=== PATIENT | male | born 1955 | race Caucasian/White ===

== ENCOUNTER 2016-11-16 09:40 | Emergency (ER) | payer MEDICARE, BC ==
[2016-11-16 11:07] VITALS: BP 160/91
--- NOTE | 2016-11-16 12:04 | EDM.PDOC ---
[id number]: SINUS ISSUES? Time Seen by Provider: 11/16/16 10:59 Source of Information: Reports: Patient History Limitations: Reports: No Limitations - History of Present Illness INITIAL COMMENTS - FREE TEXT/NARRATIVE: 60 yo male present to ER with anal pain. Hx of anal fissure and infection. Has been treated in the past and referred to surgery but after resolution of the infection he did not follow-up. pain started earlier this week. Purulent drainage. denies constipation. loose stools are normal for him. - Related Data Allergies Allergy/AdvReac Type Severity Reaction Status Date / Time No Known Allergies Allergy Verified 03/19/15 10:09 Home Meds: Home Meds Lisinopril [Lisinopril] 20 mg PO DAILY 03/22/13 [History] Omeprazole [Omeprazole] 10 mg PO DAILY 03/22/13 [History] Zolpidem [Ambien] 10 mg PO BEDTIME PRN 03/22/13 [History] Methocarbamol [Robaxin] 1,000 mg PO Q8H 01/15/15 [History] Albuterol Sulfate [Proair Hfa] 2 puff INH Q3H PRN 03/19/15 [History] Budesonide/Formoterol [Symbicort 160-4.5 MCG] 2 puff INH BID 03/19/15 [History] buPROPion HCl [Wellbutrin Xl] 150 mg PO BID 03/19/15 [History] Pregabalin [Lyrica] 11/16/16 [History] Past Medical History Other Gastrointestinal History: colon polyps Other Musculoskeletal History: left leg pain, left foot fracture - Past Surgical History Other Cardiovascular Surgeries/Procedures: angiogram GI Surgical History: Reports: Cholecystectomy, Hernia Repair/Other Musculoskeletal Surgical History: Reports: Arthroscopic Knee, Knee Replacement, Shoulder Surgery Other Musculoskeletal Surgeries/Procedures:: back surgery, left knee replacement Social & Family History - Tobacco Use Smoking Status *Q: Current Every Day Smoker Years of Tobacco use: 40 Packs/Tins Daily: 1 Used Tobacco, but Quit: No Month Tobacco Last Used: February Second Hand Smoke Exposure: No - Alcohol Use Days Per Week of Alcohol Use: 3 Number of Drinks Per Day: 3 Total Drinks Per Week: 9 - Recreational Drug Use Recreational Drug Use: No ED ROS GENERAL - Review of Systems Review Of Systems: See Below Constitutional: Denies: Fever, Chills Respiratory: Denies: Shortness of Breath, Wheezing Cardiovascular: Denies: Chest Pain GI/Abdominal: Denies: Abdominal Pain ED EXAM, GI/ABD - Physical Exam Exam: See Below Exam Limited By: No Limitations General Appearance: Alert, WD/WN, No Apparent Distress Respiratory/Chest: No Respiratory Distress, Lungs Clear, Normal Breath Sounds. No: Crackles, Rhonchi, Wheezing Cardiovascular: Regular Rate, Rhythm, No Murmur Rectal (Males) Exam: Normal Rectal Tone, Rectal Fissure (purulent drainage, moderated tender) Skin Exam: Warm, Dry, Intact Course - Vital Signs Last Recorded V/S: Last Vital Signs Temp 37.1 C 11/16/16 11:04 Pulse 98 11/16/16 11:04 Resp 14 11/16/16 11:04 BP 160/91 H 11/16/16 11:04 Pulse Ox 95 11/16/16 11:04 Departure - Departure Time of Disposition: 12:03 Disposition: Home, Self-Care 01 Condition: good Clinical Impression: Anal fissure Cellulitis Qualifiers: Site of cellulitis: buttock Qualified Code(s): L03.317 - Cellulitis of buttock - Discharge Information Instructions: Wound Infection, [id number] Referrals: Nikhil Paul MD [Primary Care Provider] - Forms: ED Department Discharge Additional Instructions: this is a temporary fix you will need to follow-up as before with surgeon Lidocaine viscous to area for pain Keflex three times daily for 7 days
== END 2016-11-16 12:19 | disposition home or self-care (01) ==
LOC: JP.ED 09:40
DX: K60.2 Anal fissure, unspecified (principal); L03.317 Cellulitis of buttock; F17.210 Nicotine dependence, cigarettes, uncomplicated; Z79.899 Other long term (current) drug therapy; Z96.652 Presence of left artificial knee joint; Z90.49 Acquired absence of other specified parts of digestive tract; Z98.890 Other specified postprocedural states
CPT/HCPCS: 99283

== ENCOUNTER → 2018-09-22 | Day surgery (SDC) | payer MEDICARE, BC ==
[~2018-09-22] MED LIST: Acetaminophen/HYDROcodone 325-5 MG Tab PO PRN; Bupivacaine 0.25% 10 ML SDV ONE; Dexamethasone 4 MG/ML SDV ONE; Glycopyrrolate 0.2 MG/ML 5 ML MDV ONE; Lactated Ringers 1,000 ML IV SCH; Morphine 2 MG/ML Syringe IVPUSH ONE; Neostigmine Methylsulfate 1 MG/ML 5 ML Syringe ONE; Nozin Nasal Sanitizer NASBOTH ONE; Ondansetron 4 MG/2 ML SDV ONE; Propofol 200 MG/20 ML SDV ONE; Rocuronium 50 MG/5 ML Vial ONE; Succinylcholine 200 MG/10 ML MDV ONE; ceFAZolin 2 GM in Premix Bag 1 BAG IV ONE; fentaNYL 250 MCG/5 ML SDV ONE; hydrOXYzine HCl 100 MG/2 ML SDV IM ONE
[2018-09-22 12:01] VITALS: BP 132/89
--- NOTE | 2018-09-28 08:47 | PCM.OPNOTE ---
- General Post-Op/Procedure Note Date of Surgery/Procedure: 09/22/18 Operative Procedure(s): Arthroscopy left knee with extensive synovectomy and debridement of scar tissue Findings: Synovitis left knee with calcifications, scar tissue with encroachment on patellar component. Pre Op Diagnosis: Synovitis left knee Post-Op Diagnosis: Synovitis left knee, intra-articular scar tissue Anesthesia Technique: General ET Tube Primary Surgeon: Jeramy Bautista Complications: None Condition: Good Free Text/Narrative:: Indications: Luis F is a 62-year-old gentleman with a history of left total knee revision who has been having progressive grinding and pain in the left knee.He has failed conservative treatment.He has difficulty with walking from a seated position and stairs. Examination is consistent with synovitis in the left knee and overgrowth of synovium and/or scar tissue around the patellofemoral joint. He now presents for arthroscopic resection of this.Risks, benefits and potential complications were discussed. He agrees to proceed. He is aware that there is a risk for infection of the total knee as well as potential damage to the components. procedure: After adequate anesthesia was obtained patient was placed supine with a tourniquet about the left upper thigh. The leg was prepped and draped in a sterile fashion. Spinal needle was utilized to identify space for a anterior inferior lateral portal.ncision was made with an 11 bladeand thescope trocar was inserted taking care to avoid direct contace component.Scope was introduced. This showed significant car tissue within the notch and around the infe Spinal needle was again utilized to visualize a position for a medial portal.11 blade was used to create a portal and a shaver was then introduced debriding the scar tissue to allow better visualization. Working up around the medial aspect of the patella scar tissue was noted encroaching over the patellar component and a in layer of synovium was present throughout the knee with very small whiteparticles within the sm. Shaver waed on these athey appeared to be a calcific in naturethey had a consistency Arter than the typical synovium.This was cleared around tperior aspect. An ablation wand was also utilized to clear soft tissue and scar tissue from around the patellar component taking care to avoid direct contact with the component. The synovectomy was continued around into the suprapatellar pouch releasing some adhesions. His continued around the lateral aspect until the limits of the shaver were reached.Scope was switched to the medial portal.Shaver was used to debride the synovium in the lateral gutter and around the lateral portion of the patella.The ablation and was also utilized to clear scar tissue from around the patellar component. Should be noted that the patellar component showed a flattened area where it impacted the lateral femoral condyle consistent with increased pressure and possible wear versus plastic deformity of the component.All loose fragments were removed. The knee was drained. Scope was withdrawn and the port sites were then closed in 2 layers with 3-0 Monocryl. Steri-Strips were applied. A light compressive dressing was then placed.Patient tolerated the procedure well and there were no complications he was taken from the operating room in a stable condition.
== END ==
LOC: JP.SDS 08:27
PROVIDERS: ATTEND Specialist
DX: M65.862 Other synovitis and tenosynovitis, left lower leg (principal); M54.16 Radiculopathy, lumbar region; J45.909 Unspecified asthma, uncomplicated; F32.9 Major depressive disorder, single episode, unspecified; I10 Essential (primary) hypertension; F17.200 Nicotine dependence, unspecified, uncomplicated; Z96.652 Presence of left artificial knee joint; Z79.899 Other long term (current) drug therapy
CPT/HCPCS: 29876; A9270; J0330; J0690; J1100; J2270; J2405; J2704; J2710; J3010; J3410; J3490; J7120

== ENCOUNTER 2019-01-17 08:52 | Observation (INO) | payer MEDICARE, BC ==
[~2019-01-17 08:52] MED LIST changes: -Acetaminophen/HYDROcodone 325-5 MG Tab PO PRN; -Bupivacaine 0.25% 10 ML SDV ONE; -Dexamethasone 4 MG/ML SDV ONE; -Glycopyrrolate 0.2 MG/ML 5 ML MDV ONE; -Lactated Ringers 1,000 ML IV SCH; +Midazolam 1 MG/ML 2 ML SDV ONE; -Morphine 2 MG/ML Syringe IVPUSH ONE; -Neostigmine Methylsulfate 1 MG/ML 5 ML Syringe ONE; -Nozin Nasal Sanitizer NASBOTH ONE; -Ondansetron 4 MG/2 ML SDV ONE; -Rocuronium 50 MG/5 ML Vial ONE; -Succinylcholine 200 MG/10 ML MDV ONE; -ceFAZolin 2 GM in Premix Bag 1 BAG IV ONE; +fentaNYL 100 MCG/2 ML SDV ONE; -fentaNYL 250 MCG/5 ML SDV ONE; -hydrOXYzine HCl 100 MG/2 ML SDV IM ONE
[2019-01-17] MEDS ORDERED: Lactated Ringers 1,000 ML IV SCH (09:15)
[2019-01-17] MEDS ORDERED: Gabapentin 300 MG Cap PO ONE (09:15)
[2019-01-17] MEDS ORDERED: Povidone-Iodine 10% Soln 118.25 ML Bottle ONE (09:56)
[2019-01-17] MEDS ORDERED: Scopolamine 1.5 MG Transdermal Patch TOP SCH (10:10)
[2019-01-17] MEDS: Nozin Nasal Sanitizer NASBOTH SCH ×2 (10:12→21:05)
[2019-01-17] MEDS ORDERED: Rocuronium 50 MG/5 ML Vial ONE ×2 (11:00→11:47)
[2019-01-17] MEDS ORDERED: Ondansetron 4 MG/2 ML SDV ONE (11:00)
[2019-01-17] MEDS ORDERED: Succinylcholine 200 MG/10 ML MDV ONE (11:00)
[2019-01-17] MEDS ORDERED: Dexamethasone 4 MG/ML SDV ONE (11:00)
[2019-01-17] MEDS ORDERED: Glycopyrrolate 0.2 MG/ML 5 ML MDV ONE (11:00)
[2019-01-17] MEDS ORDERED: Neostigmine Methylsulfate 1 MG/ML 5 ML Syringe ONE (11:00)
[2019-01-17] MEDS ORDERED: fentaNYL 250 MCG/5 ML SDV ONE ×3 (11:02→12:54)
[2019-01-17] MEDS: ceFAZolin 2 GM in Sodium Chloride 0.9% 50 ML IV ONE ×2 (11:12→16:13)
[2019-01-17] MEDS ORDERED: Albuterol/Ipratropium 3.0-0.5 MG/3 ML Neb Soln NEB ONE (11:15)
[2019-01-17] MEDS ORDERED: Tranexamic Acid 800 MG in Sodium Chloride 0.9% 50 ML IV ONE (11:30)
[2019-01-17] MEDS ORDERED: Lactated Ringers 1,000 ML ONE (13:16)
[2019-01-17] MEDS ORDERED: Magnesium Hydroxide 400 MG/5 ML Susp 30 ML Cup PO PRN (13:28)
[2019-01-17] MEDS ORDERED: Docusate Sodium 100 MG Cap PO PRN (13:28)
[2019-01-17] MEDS ORDERED: Acetaminophen 325 MG Tab PO PRN (13:28)
[2019-01-17] MEDS ORDERED: Ondansetron 4 MG/2 ML SDV IVPUSH PRN (13:28)
[2019-01-17] MEDS ORDERED: Sodium Chloride 0.9% 1,000 ML IV SCH (13:30)
[2019-01-17] MEDS ORDERED: Albuterol 8 GM Inhaler INH PRN (13:37)
[2019-01-17] MEDS ORDERED: hydrOXYzine HCl 100 MG/2 ML SDV IM ONE (14:03)
[2019-01-17] MEDS ORDERED: Tranexamic Acid 800 MG in Sodium Chloride 0.9% 50 ML IV PRN (14:30)
[2019-01-17] MEDS: Acetaminophen/HYDROcodone 325-5 MG Tab PO PRN ×2 (14:44→19:34)
[2019-01-17] MEDS: ceFAZolin 1 GM in Premix Bag 1 BAG IV SCH (16:38)
[2019-01-17] MEDS: Acetaminophen/oxyCODONE 325-5 MG Tab PO PRN ×2 (18:13→23:18)
[2019-01-17] MEDS: Fluticasone-Salmeterol 232-14 MCG Powder Inhalent INH SCH (21:05)
[2019-01-18] MEDS: ceFAZolin 1 GM in Premix Bag 1 BAG IV SCH ×3 (01:22→17:02)
[2019-01-18] MEDS: HYDROmorphone 2 MG Tab PO PRN ×6 (01:28→21:03)
[2019-01-18] MEDS: Fluticasone-Salmeterol 232-14 MCG Powder Inhalent INH SCH ×2 (07:42→21:02)
[2019-01-18] MEDS: Acetaminophen/oxyCODONE 325-5 MG Tab PO PRN ×2 (07:51→12:36)
[2019-01-18] MEDS: Pantoprazole 40 MG Tab.CR PO SCH (07:53)
[2019-01-18] MEDS: Nozin Nasal Sanitizer NASBOTH SCH ×2 (09:23→21:01)
[2019-01-18] MEDS: Lisinopril 20 MG Tab PO SCH (09:26)
[2019-01-18] MEDS: Enoxaparin 30 MG/0.3 ML Syringe SUBCUT SCH (09:27)
[2019-01-18] MEDS: Cyclobenzaprine 10 MG Tab PO SCH ×2 (13:34→21:02)
--- NOTE | 2019-01-18 13:54 | CRLCR ---
INDICATION: Postoperative assessment. COMPARISON: AP view of the left knee from 08/20/2018 TECHNIQUE: AP and lateral views of the left knee were obtained with portable technique. FINDINGS: A new stemmed distal femoral prosthetic component has been placed. The cemented components of the proximal tibial component appears to be unchanged, with a new prosthetic component placed in the tibial spine region. The components are in anatomic alignment with no sign of fracture, loosening, or dislocation. Gas and fluid are seen in the joint space from recent surgery. IMPRESSION: Satisfactory appearance of the left knee following revision of a total knee prosthesis. Dictated by Carlo Gomez MD @ Jan 18 2019 1:48PM Signed by Dr. Carlo Gomez @ Jan 18 2019 1:52PM
--- NOTE | 2019-01-18 16:49 | OR ---
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 PROCEDURE: Revision left knee arthroplasty including femoral component and tibial polyethylene. ANESTHESIA: General. INDICATIONS: Luis F is a 63-year-old gentleman, who has previously had left knee revision and has been experiencing persistent pain and a sensation of instability. Examination reveals varus and valgus laxity. His current revision consists of the thickest polyethylene insert available for the femoral and tibial components that are in place. In order to revise this to a more stable configuration, he now presents for revision of the femoral component to a constrained condylar device. Risks, benefits, and potential complications of the procedure were discussed. DESCRIPTION OF PROCEDURE: After adequate anesthesia was obtained, the patient was placed supine with a tourniquet about the left upper thigh. Left leg was prepped and draped in a sterile fashion. Leg was exsanguinated and tourniquet was inflated to 300 mmHg pressure. Previous scar was utilized on the anterior aspect of the knee and carried down through the subcutaneous tissues. Medial parapatellar arthrotomy was performed. Medial release was also performed. There was no evidence of infection or significant synovitis present. The patella was mobilized laterally and the screw was removed from the polyethylene. Polyethylene was then removed. Using a combination of straight and curved osteotomes, the edges of the femoral component were loosened. A Gigli saw was then placed under the anterior flange and brought down anteriorly to the level of the intercondylar notch. This was then removed. Osteotomes were then used to further loosen the prosthesis medial, lateral, and posteriorly. A slap hammer was then used to remove the prosthesis. A fairly minor bone loss was present with this removal. The canal was then sequentially reamed to a size 16 stem. The stem was left in place and a size F cutting guide was placed over this. The anterior flange was recut. Chamfer cuts did not need to be revised. After assessing position of the component, posterior flanges were cut back to accept a 5 mm block. The trial was then assembled with the 16 mm stem and block extensions of 5 mm on each posterior flange and distally to bring the joint line down 5 mm. The trial was placed after cutting the intercondylar notch to accept the constrained condylar component. This fit very nicely. The trial polyethylene 14 mm was then placed. This allowed full extension with just a slight amount of play and a 17 mm insert was then trialed with better stability. The trials were removed. The knee was thoroughly irrigated with pulse lavage. The new components were opened on the back table and the femoral component was assembled, again with 5 mm distal augments and 5 mm posterior augments with a 16 mm x 100 mm stem. The component was then cemented in place and the excess cement was removed. A trial 17 poly was placed, and the knee was held in full extension and the cement cured. The knee was again taken through range of motion. It showed excellent stability in varus and valgus. The patella tracked slightly laterally and this was true of his previous revision which did result in slight deformity of the dome of the patellar component. A lateral release was performed, which did improve tracking. The trial was removed and the knee was irrigated once again. Final LCCK poly was snapped into position and secured with the screw and tightening this down with a torque wrench to the appropriate position. The knee was then irrigated once again with pulse lavage. Another irrigation was then performed with dilute Betadine solution. After approximately 2.5 minutes, this was irrigated with a pulse lavage a final time. Capsule was then closed with #1 Ethibond in interrupted fashion. The knee was taken through range of motion after capsular closure and again full extension was obtained with flexion to approximately 110 degrees. The skin was then closed with 2-0 Vicryl and a running 3-0 Monocryl. Steri-Strips were applied. A compressive dressing was then placed. The patient tolerated the procedure very well. There were no complications. He was taken from the operating room in stable condition. Jeramy Bautista MD /[id number]
[2019-01-19] MEDS: HYDROmorphone 2 MG Tab PO PRN ×4 (03:17→09:24)
[2019-01-19] MEDS: Fluticasone-Salmeterol 232-14 MCG Powder Inhalent INH SCH (07:15)
[2019-01-19 07:41] VITALS: BP 131/89; PULSE 100
[2019-01-19] MEDS: Lisinopril 20 MG Tab PO SCH (08:14)
[2019-01-19] MEDS: Pantoprazole 40 MG Tab.CR PO SCH (08:14)
[2019-01-19] MEDS: Nozin Nasal Sanitizer NASBOTH SCH (08:15)
[2019-01-19] MEDS: Cyclobenzaprine 10 MG Tab PO SCH (08:15)
[2019-01-19] MEDS: Enoxaparin 30 MG/0.3 ML Syringe SUBCUT SCH (08:15)
--- NOTE | 2019-01-20 16:30 | PCM.SURGPN ---
- General Info Date of Service: 01/18/19 Date of Surgery/Procedure: 01/17/19 POD#: 1 Functional Status: Reports: Tolerating Diet, Ambulating, Urinating, Other (Pain poorly controlled) - Review of Systems General: Reports: No Symptoms HEENT: Reports: No Symptoms Pulmonary: Reports: No Symptoms Cardiovascular: Reports: No Symptoms Gastrointestinal: Reports: No Symptoms Genitourinary: Reports: No Symptoms Musculoskeletal: Reports: Leg Pain Skin: Reports: No Symptoms Neurological: Reports: No Symptoms Psychiatric: Reports: No Symptoms - Patient Data Vitals - Most Recent: Last Vital Signs Temp 36.8 C 01/19/19 07:38 Pulse 100 01/19/19 07:38 Resp 16 01/19/19 07:38 BP 131/89 01/19/19 08:14 Pulse Ox 93 L 01/19/19 07:38 Weight - Most Recent: 79.37 kg Med Orders - Current: Current Medications Discontinued Medications Acetaminophen (Tylenol) 650 mg PO Q4H PRN PRN Reason: Pain/Fever Last Admin: 01/18/19 19:33 Dose: 650 mg Hydrocodone Bitart/Acetaminophen ([place] 325-5 Mg) 1 tab PO Q3H PRN PRN Reason: Pain (mild 1-3) Last Admin: 01/17/19 19:34 Dose: 1 tab Albuterol (Ventolin Hfa) 0 gm INH Q3H PRN PRN Reason: Dyspnea Albuterol/Ipratropium (Duoneb 3.0-0.5 Mg/3 Ml) 3 ml NEB ONETIME ONE Stop: 01/17/19 11:16 Last Admin: 01/17/19 11:08 Dose: 3 ml Bandage/Support Products ( Nasal [employer]) 1 applic NASBOTH BID [facility] Stop: 01/23/19 21:01 Last Admin: 01/19/19 08:15 Dose: 1 swab Cyclobenzaprine HCl (Flexeril) 10 mg PO TID [facility] Last Admin: 01/19/19 08:15 Dose: 10 mg Dexamethasone (Dexamethasone) Confirm Administered Dose 4 mg .ROUTE .STK-MED ONE Stop: 01/17/19 11:01 Docusate Sodium (Colace) 100 mg PO BID PRN PRN Reason: Constipation Enoxaparin Sodium (Lovenox) 30 mg SUBCUT DAILY [facility] Last Admin: 01/19/19 08:15 Dose: 30 mg Fentanyl (Sublimaze) Confirm Administered Dose 100 mcg .ROUTE .STK-MED ONE Stop: 01/17/19 08:17 Fentanyl (Sublimaze) Confirm Administered Dose 250 mcg .ROUTE .STK-MED ONE Stop: 01/17/19 11:03 Fentanyl (Sublimaze) Confirm Administered Dose 250 mcg .ROUTE .STK-MED ONE Stop: 01/17/19 11:41 Fentanyl (Sublimaze) Confirm Administered Dose 250 mcg .ROUTE .STK-MED ONE Stop: 01/17/19 12:55 Gabapentin (Neurontin) 300 mg PO ONETIME ONE Stop: 01/17/19 09:16 Last Admin: 01/17/19 10:12 Dose: 300 mg Glycopyrrolate (Robinul) Confirm Administered Dose 1 mg .ROUTE .STK-MED ONE Stop: 01/17/19 11:01 Hydromorphone HCl (Dilaudid) 2 mg PO Q4H PRN PRN Reason: Pain (moderate 4-6) Last Admin: 01/18/19 09:33 Dose: 2 mg Hydromorphone HCl (Dilaudid) 4 mg PO Q3H PRN PRN Reason: Pain (severe 7-10) Last Admin: 01/19/19 09:24 Dose: 4 mg Hydroxyzine HCl (Vistaril) 75 mg IM ONETIME ONE Stop: 01/17/19 14:04 Last Admin: 01/17/19 14:07 Dose: 75 mg Cefazolin Sodium 2 gm/ Sodium (Chloride) 50 mls @ 100 mls/hr IV ONETIME ONE Stop: 01/17/19 10:44 Last Admin: 01/17/19 16:13 Dose: Not Given Lactated Ringer's (Ringers, Lactated) 1,000 mls @ 75 mls/hr IV ASDIRECTED [facility] Last Admin: 01/17/19 10:13 Dose: 75 mls/hr Tranexamic Acid 800 mg/ Sodium (Chloride) 58 mls @ 232 mls/hr IV ONETIME ONE Stop: 01/17/19 11:44 Last Admin: 01/17/19 11:15 Dose: 232 mls/hr Tranexamic Acid 800 mg/ Sodium (Chloride) 58 mls @ 232 mls/hr IV ONETIME PRN PRN Reason: USE IF REQUESTED BY SURGEON Stop: 01/17/19 14:31 Lactated Ringer's (Ringers, Lactated) Confirm Administered Dose 1,000 mls @ as directed .ROUTE .STK-MED ONE Stop: 01/17/19 13:17 Cefazolin Sodium/Dextrose 1 gm (/ Premix) 50 mls @ 100 mls/hr IV Q8H [facility] Stop: 01/18/19 17:29 Last Admin: 01/18/19 17:02 Dose: 100 mls/hr Sodium Chloride (Normal Saline) 1,000 mls @ 125 mls/hr IV ASDIRECTED [facility] Last Admin: 01/17/19 16:52 Dose: 125 mls/hr Lisinopril (Prinivil) 20 mg PO DAILY [facility] Last Admin: 01/19/19 08:14 Dose: 20 mg Magnesium Hydroxide (Milk Of Magnesia) 30 ml PO BID PRN PRN Reason: Constipation Midazolam HCl (Versed 1 Mg/Ml) Confirm Administered Dose 2 mg .ROUTE .STK-MED ONE Stop: 01/17/19 08:17 Neostigmine Methylsulfate (Neostigmine) Confirm Administered Dose 5 mg .ROUTE .STK-MED ONE Stop: 01/17/19 11:01 Ondansetron HCl (Zofran) Confirm Administered Dose 4 mg .ROUTE .STK-MED ONE Stop: 01/17/19 11:01 Ondansetron HCl (Zofran) 4 mg IVPUSH Q6H PRN PRN Reason: Nausea/Vomiting Oxycodone/Acetaminophen (Percocet 325-5 Mg) 2 tab PO Q4H PRN PRN Reason: Pain (severe 7-10) Last Admin: 01/18/19 12:36 Dose: 2 tab Pantoprazole Sodium (Protonix) 40 mg PO ACBREAKFAST [facility] Last Admin: 01/19/19 08:14 Dose: 40 mg Povidone Iodine (Betadine 10% Soln) Confirm Administered Dose 1 ml .ROUTE .STK- MED ONE Stop: 01/17/19 09:57 Last Admin: 01/17/19 12:11 Dose: 40 ml Propofol (Diprivan 20 Ml) Confirm Administered Dose 200 mg .ROUTE .STK-MED ONE Stop: 01/17/19 08:17 Rocuronium [place] (Zemuron) Confirm Administered Dose 50 mg .ROUTE .STK-MED ONE Stop: 01/17/19 11:01 Rocuronium [place] (Zemuron) Confirm Administered Dose 50 mg .ROUTE .STK-MED ONE Stop: 01/17/19 11:48 Fluticasone/Salmeterol (Fluticasone-Salmeterol 232-14 Mcg Powder Inha) 1 puff INH BIDRT [facility] Last Admin: 01/19/19 07:15 Dose: 1 puff Scopolamine (Transderm-Scop) 1.5 mg TOP Q72H [facility] Stop: 01/20/19 08:00 Last Admin: 01/17/19 10:14 Dose: 1.5 mg Succinylcholine Chloride (Quelicin) Confirm Administered Dose 200 mg .ROUTE .STK -MED ONE Stop: 01/17/19 11:01 Varenicline (Chantix) 0.5 mg PO DAILY [facility] Last Admin: 01/19/19 08:15 Dose: 0.5 mg - Exam Wound/Incisions: Dressing Dry and Intact General: Alert, Oriented HEENT: Pupils Equal Neck: Supple Lungs: Clear to Auscultation, Normal Respiratory Effort Cardiovascular: Regular Rate, Regular Rhythm GI/Abdominal Exam: Normal Bowel Sounds, Soft, Non-Tender, No Organomegaly, No Distention, No Abnormal Bruit, No Mass, Pelvis Stable Extremities: Other (mild swelling, no signs of DVT) Skin: Warm, Dry, Intact Neurological: No New Focal Deficit Psy/Mental Status: Alert, Normal Affect, Normal Mood - Problem List & Annotations (1) Status post revision of total replacement of left knee SNOMED Code(s): 633721035391711, 760639183182031 Code(s): Z96.652 - PRESENCE OF LEFT ARTIFICIAL KNEE JOINT Status: Acute (2) Knee pain, left SNOMED Code(s): 56968442 Code(s): M25.562 - PAIN IN LEFT KNEE Status: Acute Qualifiers: (3) Painful total knee replacement, left SNOMED Code(s): 188006147 Code(s): T84.84XA - PAIN DUE TO INTERNAL ORTHOPEDIC PROSTH DEV/GRFT, INIT; Z96.652 - PRESENCE OF LEFT ARTIFICIAL KNEE JOINT Status: Acute Qualifiers: Encounter type: initial encounter Qualified Code(s): T84.84XA - Pain due to internal orthopedic prosthetic devices, implants and grafts, initial encounter; Z96.652 - Presence of left artificial knee joint - Problem List Review Problem List Initiated/Reviewed/Updated: Yes - Assessment Assessment (Free Text/Narrative):: Tolerated procedure well, having difficulty with pain control, despite this has been up in chair and ambulating. Planning on going home with home health service. May be able to go home tomorrow. [facility] - Plan Plan (Free Text/Narrative):: Pain medication adjusted. Continue PT/OT. Change dressing tomorrow.
--- NOTE | 2019-01-20 16:39 | PCM.DCSUM1 ---
Discharge Summary - Hospital Course Free Text/Narrative:: Admitted for revision of left total due to pain and instability. Diagnosis: Stroke: No - Discharge Data Discharge Date: 01/19/19 Discharge Disposition: Home, W Home Health Agency 06 Condition: Good - Discharge Diagnosis/Problem(s) (1) Status post revision of total replacement of left knee SNOMED Code(s): 779153970239179, [id number] ICD Code: Z96.652 - PRESENCE OF LEFT ARTIFICIAL KNEE JOINT Status: Acute (2) Knee pain, left SNOMED Code(s): 54178772 ICD Code: M25.562 - PAIN IN LEFT KNEE Status: Acute Qualifiers: Chronicity: chronic (3) Painful total knee replacement, left SNOMED Code(s): 601746586 ICD Code: T84.84XA - PAIN DUE TO INTERNAL ORTHOPEDIC PROSTH DEV/GRFT, INIT; Z96.652 - PRESENCE OF LEFT ARTIFICIAL KNEE JOINT Status: Acute Qualifiers: Encounter type: sequela Qualified Code(s): T84.84XS - Pain due to internal orthopedic prosthetic devices, implants and grafts, sequela; Z96.652 - Presence of left artificial knee joint - Patient Summary/Data Operative Procedure(s) Performed: Revision of left knee femoral component and tibial insert Complications: None Consults: Consultations 01/17/19 13:28 Consult to Case Management/Utility Clerk [CONS] Routine Comment: Physician Instructions: Service(s) to be Consulted: Case Management Reason for Consult: Plan for Discharge PT Evaluation and Treatment [CONS] Routine Please Evaluate and Treat. PT Reason for Consult: Post op Ortho Surgery Pending Discharge: Yes Discharge Disposition: Home w Home Health This query below is only for informational purposes and is not editable. 01/18/19 08:25 Consult to Occupational Therapy [OT Evaluation and Treatment] [CONS] Routine Please Evaluate and Treat. OT Reason for Consult: ADL's Pending Discharge: Yes Discharge Disposition: Home w Home Health Special Instructions: ADLs and adaptive devices This query below is only for informational purposes and is not editable. Admission Diagnosis/Problem: Unstable knee Hospital Course: Admitted for left knee revision. Tolerated procedure very well. Was able to ambulate and transfer independently by POD #2. Pain medication adjusted POD #1 and dressings changed POD #2. Incision was healing well with no drainage. Discharged with home health to follow for PT. Will do Lovenox at home for 4 weeks. - Patient Instructions Diet: Usual Diet as Tolerated Activity: Apply Ice, As Tolerated, Full Weight Bearing Showering/Bathing: May Shower Wound/Incision Care: Keep Operative Site/Wound Site Clean and Dry Notify Provider of: Fever, Increased Pain, Swelling and Redness, Drainage, Nausea and/or Vomiting - Discharge Plan *PRESCRIPTION DRUG MONITORING PROGRAM REVIEWED*: No *COPY OF PRESCRIPTION DRUG MONITORING REPORT IN PATIENT BAMBI: No Prescriptions/Med Rec: Cyclobenzaprine [Flexeril] 10 mg PO TID PRN #21 tab PRN Reason: Muscle Spasm HYDROmorphone [Dilaudid] 2 mg PO Q4H PRN #42 tab PRN Reason: Pain Home Medications: Home Meds Lisinopril 20 mg PO DAILY 03/22/13 [History] Omeprazole 10 mg PO DAILY 03/22/13 [History] Albuterol Sulfate [Proair Hfa] 2 puff INH Q3H PRN 03/19/15 [History] Budesonide/Formoterol [Symbicort 160-4.5 MCG] 2 puff INH BID 03/19/15 [History] Acetaminophen [Tylenol Extra Strength] 1,000 mg PO Q4HR PRN 09/28/18 [History] Varenicline [Chantix] 0.5 mg PO DAILY 12/28/18 [History] Cyclobenzaprine [Flexeril] 10 mg PO TID PRN #21 tab 01/19/19 [Rx] HYDROmorphone [Dilaudid] 2 mg PO Q4H PRN #42 tab 01/19/19 [Rx] Oxygen Therapy Mode: Room Air Patient Handouts: Enoxaparin injection, Deep Vein Thrombosis, Preventing Constipation After Surgery Referrals: Jeramy Bautista MD [Physician] - 01/27/19 10:45 am (Please arrive 15 minutes early to register for your appointment. Please check in at the ER desk.) - Discharge Summary/Plan Comment DC Time >30 min.: Yes - General Info Functional Status: Reports: Pain Controlled, Tolerating Diet, Ambulating, Urinating - Review of Systems General: Reports: No Symptoms HEENT: Reports: No Symptoms Pulmonary: Reports: No Symptoms Cardiovascular: Reports: No Symptoms Gastrointestinal: Reports: No Symptoms Genitourinary: Reports: No Symptoms Musculoskeletal: Reports: Leg Pain Skin: Reports: No Symptoms Neurological: Reports: No Symptoms Psychiatric: Reports: No Symptoms - Patient Data Vitals - Most Recent: Last Vital Signs Temp 36.8 C 01/19/19 07:38 Pulse 100 01/19/19 07:38 Resp 16 01/19/19 07:38 BP 131/89 01/19/19 08:14 Pulse Ox 93 L 01/19/19 07:38 Weight - Most Recent: 79.37 kg Med Orders - Current: Current Medications Discontinued Medications Acetaminophen (Tylenol) 650 mg PO Q4H PRN PRN Reason: Pain/Fever Last Admin: 01/18/19 19:33 Dose: 650 mg Hydrocodone Bitart/Acetaminophen ([place] 325-5 Mg) 1 tab PO Q3H PRN PRN Reason: Pain (mild 1-3) Last Admin: 01/17/19 19:34 Dose: 1 tab Albuterol (Ventolin Hfa) 0 gm INH Q3H PRN PRN Reason: Dyspnea Albuterol/Ipratropium (Duoneb 3.0-0.5 Mg/3 Ml) 3 ml NEB ONETIME ONE Stop: 01/17/19 11:16 Last Admin: 01/17/19 11:08 Dose: 3 ml Bandage/Support Products ( Nasal Manager Car) 1 applic NASBOTH BID [facility] Stop: 01/23/19 21:01 Last Admin: 01/19/19 08:15 Dose: 1 swab Cyclobenzaprine HCl (Flexeril) 10 mg PO TID [facility] Last Admin: 01/19/19 08:15 Dose: 10 mg Dexamethasone (Dexamethasone) Confirm Administered Dose 4 mg .ROUTE .STK-MED ONE Stop: 01/17/19 11:01 Docusate Sodium (Colace) 100 mg PO BID PRN PRN Reason: Constipation Enoxaparin Sodium (Lovenox) 30 mg SUBCUT DAILY [facility] Last Admin: 01/19/19 08:15 Dose: 30 mg Fentanyl (Sublimaze) Confirm Administered Dose 100 mcg .ROUTE .STK-MED ONE Stop: 01/17/19 08:17 Fentanyl (Sublimaze) Confirm Administered Dose 250 mcg .ROUTE .STK-MED ONE Stop: 01/17/19 11:03 Fentanyl (Sublimaze) Confirm Administered Dose 250 mcg .ROUTE .STK-MED ONE Stop: 01/17/19 11:41 Fentanyl (Sublimaze) Confirm Administered Dose 250 mcg .ROUTE .STK-MED ONE Stop: 01/17/19 12:55 Gabapentin (Neurontin) 300 mg PO ONETIME ONE Stop: 01/17/19 09:16 Last Admin: 01/17/19 10:12 Dose: 300 mg Glycopyrrolate (Robinul) Confirm Administered Dose 1 mg .ROUTE .STK-MED ONE Stop: 01/17/19 11:01 Hydromorphone HCl (Dilaudid) 2 mg PO Q4H PRN PRN Reason: Pain (moderate 4-6) Last Admin: 01/18/19 09:33 Dose: 2 mg Hydromorphone HCl (Dilaudid) 4 mg PO Q3H PRN PRN Reason: Pain (severe 7-10) Last Admin: 01/19/19 09:24 Dose: 4 mg Hydroxyzine HCl (Vistaril) 75 mg IM ONETIME ONE Stop: 01/17/19 14:04 Last Admin: 01/17/19 14:07 Dose: 75 mg Cefazolin Sodium 2 gm/ Sodium (Chloride) 50 mls @ 100 mls/hr IV ONETIME ONE Stop: 01/17/19 10:44 Last Admin: 01/17/19 16:13 Dose: Not Given Lactated Ringer's (Ringers, Lactated) 1,000 mls @ 75 mls/hr IV ASDIRECTED [facility] Last Admin: 01/17/19 10:13 Dose: 75 mls/hr Tranexamic Acid 800 mg/ Sodium (Chloride) 58 mls @ 232 mls/hr IV ONETIME ONE Stop: 01/17/19 11:44 Last Admin: 01/17/19 11:15 Dose: 232 mls/hr Tranexamic Acid 800 mg/ Sodium (Chloride) 58 mls @ 232 mls/hr IV ONETIME PRN PRN Reason: USE IF REQUESTED BY SURGEON Stop: 01/17/19 14:31 Lactated Ringer's (Ringers, Lactated) Confirm Administered Dose 1,000 mls @ as directed .ROUTE .STK-MED ONE Stop: 01/17/19 13:17 Cefazolin Sodium/Dextrose 1 gm (/ Premix) 50 mls @ 100 mls/hr IV Q8H [facility] Stop: 01/18/19 17:29 Last Admin: 01/18/19 17:02 Dose: 100 mls/hr Sodium Chloride (Normal Saline) 1,000 mls @ 125 mls/hr IV ASDIRECTED [facility] Last Admin: 01/17/19 16:52 Dose: 125 mls/hr Lisinopril (Prinivil) 20 mg PO DAILY [facility] Last Admin: 01/19/19 08:14 Dose: 20 mg Magnesium Hydroxide (Milk Of Magnesia) 30 ml PO BID PRN PRN Reason: Constipation Midazolam HCl (Versed 1 Mg/Ml) Confirm Administered Dose 2 mg .ROUTE .STK-MED ONE Stop: 01/17/19 08:17 Neostigmine Methylsulfate (Neostigmine) Confirm Administered Dose 5 mg .ROUTE .STK-MED ONE Stop: 01/17/19 11:01 Ondansetron HCl (Zofran) Confirm Administered Dose 4 mg .ROUTE .STK-MED ONE Stop: 01/17/19 11:01 Ondansetron HCl (Zofran) 4 mg IVPUSH Q6H PRN PRN Reason: Nausea/Vomiting Oxycodone/Acetaminophen (Percocet 325-5 Mg) 2 tab PO Q4H PRN PRN Reason: Pain (severe 7-10) Last Admin: 01/18/19 12:36 Dose: 2 tab Pantoprazole Sodium (Protonix) 40 mg PO ACBREAKFAST [facility] Last Admin: 01/19/19 08:14 Dose: 40 mg Povidone Iodine (Betadine 10% Soln) Confirm Administered Dose 1 ml .ROUTE .STK- MED ONE Stop: 01/17/19 09:57 Last Admin: 01/17/19 12:11 Dose: 40 ml Propofol (Diprivan 20 Ml) Confirm Administered Dose 200 mg .ROUTE .STK-MED ONE Stop: 01/17/19 08:17 Rocuronium [place] (Zemuron) Confirm Administered Dose 50 mg .ROUTE .STK-MED ONE Stop: 01/17/19 11:01 Rocuronium [place] (Zemuron) Confirm Administered Dose 50 mg .ROUTE .STK-MED ONE Stop: 01/17/19 11:48 Fluticasone/Salmeterol (Fluticasone-Salmeterol 232-14 Mcg Powder Inha) 1 puff INH BIDRT [facility] Last Admin: 01/19/19 07:15 Dose: 1 puff Scopolamine (Transderm-Scop) 1.5 mg TOP Q72H [facility] Stop: 01/20/19 08:00 Last Admin: 01/17/19 10:14 Dose: 1.5 mg Succinylcholine Chloride (Quelicin) Confirm Administered Dose 200 mg .ROUTE .STK -MED ONE Stop: 01/17/19 11:01 Varenicline (Chantix) 0.5 mg PO DAILY [facility] Last Admin: 01/19/19 08:15 Dose: 0.5 mg - Exam General: Reports: Alert, Oriented HEENT: Reports: Pupils Equal, Pupils Reactive, EOMI, Mucous Membr. Moist/[place] Neck: Reports: Supple Lungs: Reports: Clear to Auscultation, Normal Respiratory Effort Cardiovascular: Reports: Regular Rate, Regular Rhythm GI/Abdominal Exam: Normal Bowel Sounds, Soft, Non-Tender, No Organomegaly, No Distention, No Abnormal Bruit, No Mass, Pelvis Stable (Male) Exam: Deferred Rectal (Males) Exam: Deferred Back Exam: Reports: Normal Inspection, Full Range of Motion Extremities: Other (left knee incision with no drainage, mild swelling, full extension flexion to approx 45 degrees) Skin: Reports: Warm, Dry, Intact Wound/Incisions: Reports: Healing Well, No Drainage Neurological: Reports: No New Focal Deficit Psy/Mental Status: Reports: Alert, Normal Affect, Normal Mood
== END 2019-01-19 10:58 | disposition home health service (06) ==
LOC: JP.SDS 08:52 → JP.MS 13:28 → JP.SDS 01-18 15:58 → JP.MS 01-18 15:59
PROVIDERS: ADMIT Specialist; ATTEND Specialist
DX: T84.023A Instability of internal left knee prosthesis, initial encounter (principal); J45.909 Unspecified asthma, uncomplicated; F32.9 Major depressive disorder, single episode, unspecified; I10 Essential (primary) hypertension; G89.29 Other chronic pain; M54.9 Dorsalgia, unspecified; F17.200 Nicotine dependence, unspecified, uncomplicated; Z98.890 Other specified postprocedural states; Z79.899 Other long term (current) drug therapy
CPT/HCPCS: 27487; 36415; 73560; 85027; 86850; 86900; 86901; 94640; 96372; 97110; 97161; 97165; 97530; 97535; A9270; C1713; G0378; J0330; J0690; J1100; J1650; J2405; J2704; J2710; J3010; J3410; J3490; J7030; J7050; J7120; C1776; J2250; J7620-GY

== ENCOUNTER 2019-01-23 17:07 | Emergency (ER) | payer MEDICARE, BC ==
[2019-01-23 17:38] VITALS: BP 124/79; PULSE 101
--- NOTE | 2019-01-23 18:17 | EDM.PDOC ---
ED HPI GENERAL MEDICAL PROBLEM - General Chief Complaint: Lower Extremity Injury/Pain Stated Complaint: INFECTION TOTAL KNEE REPLACEMENT Time Seen by Provider: 01/23/19 18:00 Source of Information: Reports: Patient History Limitations: Reports: No Limitations - History of Present Illness INITIAL COMMENTS - FREE TEXT/NARRATIVE: 63-year-old male had a left total knee revision 6 days ago, over the last 24 hours has developed redness, increased swelling and some slight drainage. He is also developed some blood blister formations on the top of the incision. There is a concern for infection. No fevers or chills. Onset: Gradual Duration: Day(s): (Worse over the past 24 hours) Location: Reports: Lower Extremity, Left Associated Symptoms: Denies: Fever/Chills, Headaches, Malaise, Shortness of Breath - Related Data Allergies Allergy/AdvReac Type Severity Reaction Status Date / Time No Known Allergies Allergy Verified 01/23/19 17:40 Home Meds: Home Meds Lisinopril 20 mg PO DAILY 03/22/13 [History] Omeprazole 10 mg PO DAILY 03/22/13 [History] Albuterol Sulfate [Proair Hfa] 2 puff INH Q3H PRN 03/19/15 [History] Budesonide/Formoterol [Symbicort 160-4.5 MCG] 2 puff INH BID 03/19/15 [History] Acetaminophen [Tylenol Extra Strength] 1,000 mg PO Q4HR PRN 09/28/18 [History] Varenicline [Chantix] 0.5 mg PO DAILY 12/28/18 [History] Cyclobenzaprine [Flexeril] 10 mg PO TID PRN #21 tab 01/19/19 [Rx] HYDROmorphone [Dilaudid] 2 mg PO Q4H PRN #42 tab 01/19/19 [Rx] Past Medical History HEENT History: Reports: None Cardiovascular History: Reports: Hypertension Respiratory History: Reports: Asthma, COPD Gastrointestinal History: Reports: None Other Gastrointestinal History: colon polyps Genitourinary History: Reports: None Musculoskeletal History: Reports: Back Pain, Chronic Other Musculoskeletal History: L knee scope 09/22/18 Neurological History: Reports: None, Concussion Psychiatric History: Reports: None Endocrine/Metabolic History: Reports: None Hematologic History: Reports: Blood Transfusion(s) Immunologic History: Reports: None Oncologic (Cancer) History: Reports: None Dermatologic History: Reports: None - Infectious Disease History Infectious Disease History: Reports: Chicken Pox, Measles - Past Surgical History Head Surgeries/Procedures: Reports: None HEENT Surgical History: Reports: Tonsillectomy Cardiovascular Surgical History: Reports: Other (See Below) Other Cardiovascular Surgeries/Procedures: angiogram Respiratory Surgical History: Reports: None GI Surgical History: Reports: Cholecystectomy, Colonoscopy, Hernia Repair/Other Endocrine Surgical History: Reports: None Neurological Surgical History: Reports: Lumbar Spine Other Neurological Surgeries/Procedures: Spinal fusion (2010, 2012, 10/20/2018 [facility]) Musculoskeletal Surgical History: Reports: Arthroscopic Knee, Knee Replacement, Shoulder Surgery Other Musculoskeletal Surgeries/Procedures:: L TKA x2 (2009, 2012), L knee arthroscopy (09/22/2018, Luis Bautista), L knee total joint revision due to instability (01/17/2019, Luis Bautista), L arthroscopic rotator cuff repair (2015) Dermatological Surgical History: Reports: None Social & Family History - Family History Family Medical History: Noncontributory - Tobacco Use Smoking Status *Q: Current Every Day Smoker Years of Tobacco use: 45 Packs/Tins Daily: 1 - Caffeine Use Caffeine Use: Reports: Coffee Review of Systems - Review of Systems Review Of Systems: See Below Constitutional: Denies: Fever Respiratory: Reports: No Symptoms Cardiovascular: Reports: No Symptoms GI/Abdominal: Reports: No Symptoms. Denies: Nausea, Vomiting Skin: Reports: Bruising, Erythema, Other (Blood blister formation near the incision) Neurological: Denies: Paresthesia Psychiatric: Reports: Other (Patient has been drinking today) ED EXAM, GENERAL - Physical Exam Exam: See Below Exam Limited By: No Limitations General Appearance: Alert, No Apparent Distress Respiratory/Chest: No Respiratory Distress Extremities: Other (Exam is otherwise limited to the left leg. He has diffuse edema and swelling around the left knee, with a longitudinal incision that has Steri-Strips across. There appears to be some dried drainage at the inferior aspect of the incision. The erythema is warm to touch, there is also 2 discrete blood blisters medial to the proximal aspect of the incision, the largest being 2.5 cm across.) Course - Vital Signs Last Recorded V/S: Last Vital Signs Temp 98.5 F 01/23/19 17:46 Pulse 101 H 08/04/19 17:46 Resp 14 01/23/19 17:46 BP 124/79 01/23/19 17:46 Pulse Ox 94 L 01/23/19 17:46 - Orders/Labs/Meds Orders: Active Orders 24 hr Category Date Time Status CULTURE ANAEROBIC [RM] Routine Lab 01/23/19 21:03 Received CULTURE BODY FLUID + SMEAR [RM] Stat Lab 01/23/19 21:00 Results Labs: Laboratory Tests 01/23/19 01/23/19 01/23/19 Range/Units 18:21 18:21 18:21 WBC 10.9 (4.5-11.0) K/uL RBC 4.39 (4.30-5.90) M/uL Hgb 14.2 (12.0-15.0) g/dL Hct 40.1 (40.0-54.0) % MCV 91 (80-98) fL MCH 32 H (27-31) pg MCHC 35 (32-36) % Plt Count 322 (150-400) K/uL Neut % (Auto) 58 (36-66) % Lymph % (Auto) 23 L (24-44) % [place] % (Auto) 17 H (2-6) % Eos % (Auto) 2 (2-4) % Baso % (Auto) 1 (0-1) % Sodium 126 L (140-148) mmol/L Potassium 3.4 L (3.6-5.2) mmol/L Chloride 89 L (100-108) mmol/L Carbon Dioxide 25 (21-32) mmol/L Anion Gap 15.4 H (5.0-14.0) mmol/L BUN 15 (7-18) mg/dL Creatinine 0.8 (0.8-1.3) mg/dL Est Cr Clr Drug Dosing 90.66 mL/min Estimated GFR (MDRD) > 60 (>60) Glucose 104 (74-106) mg/dL Calcium 9.2 (8.5-10.1) mg/dL C-Reactive Protein 8.12 H (0.0-0.3) mg/dL Ethyl Alcohol 128 mg/dL Meds: Medications Discontinued Medications Generic Name Dose Route Start Last Admin Trade Name Freq PRN Reason Stop Dose Admin Hydromorphone HCl 2 mg 01/23/19 20:30 01/23/19 20:39 Dilaudid PO 01/23/19 20:31 2 mg ONETIME ONE Administration Cefazolin Sodium/Dextrose 2 gm 50 mls @ 100 mls/hr 01/23/19 21:01 01/23/19 21 :16 / Premix IV 01/23/19 21:30 100 mls/hr ONETIME ONE Administration - Re-Assessments/Exams Free Text/Narrative Re-Assessment/Exam: 01/23/19 18:17 CBC, BMP, EtOH and CRP were obtained. Discussed his condition with Dr. Bautista , and he was sent pictures and we will discuss treatment after the labs return. 01/23/19 19:13 CBC revealed a normal white count, EtOH was 0.128 and CRP is 8.0. Discussed with Dr. Bautista, he is planning on coming in to evaluate the knee personally. Departure - Departure Time of Disposition: 21:51 Disposition: Home, Self-Care 01 Clinical Impression: Cellulitis Qualifiers: Site of cellulitis: extremity Site of cellulitis of extremity: lower extremity Laterality: left Qualified Code(s): L03.116 - Cellulitis of left lower limb - Discharge Information Instructions: Cellulitis, Adult, [id number] Referrals: Jeramy Bautista MD [Primary Care Provider] - Forms: ED Department Discharge Care Plan Goals: Continue current medications, follow up with Dr. Bautista as planned. - My Orders Last 24 Hours: My Active Orders 01/23/19 21:03 CULTURE ANAEROBIC [RM] Routine - Assessment/Plan Last 24 Hours: My Active Orders 01/23/19 21:03 CULTURE ANAEROBIC [RM] Routine
[2019-01-23] MEDS ORDERED: HYDROmorphone 2 MG Tab PO ONE (20:30)
[2019-01-23] MEDS ORDERED: ceFAZolin 2 GM in Premix Bag 1 BAG IV ONE (21:01)
--- NOTE | 2019-01-23 21:07 | PCM.CONS ---
H&P History of Present Illness - General Date of Service: 01/23/19 Source of Information: Patient History Limitations: Reports: No Limitations - History of Present Illness Initial Comments - Free Text/Narative: 63 year old with history of left total knee revision last Thursday presents to the ED with increasing swelling, redness and warmth of left knee that started earlier today. No fevers or chills, mild increase in pain. No drainage other than a ruptured traction blister from edge of steri-strip. Onset of Symptoms: Reports: Today Duration of Symptoms: Reports: Constant Location: Reports: Lower Extremity, Left Improves with: Reports: Rest Worsens with: Reports: Movement - Related Data Allergies/Adverse Reactions: Allergies Allergy/AdvReac Type Severity Reaction Status Date / Time No Known Allergies Allergy Verified 01/23/19 17:40 Home Medications: Home Meds Lisinopril 20 mg PO DAILY 03/22/13 [History] Omeprazole 10 mg PO DAILY 03/22/13 [History] Albuterol Sulfate [Proair Hfa] 2 puff INH Q3H PRN 03/19/15 [History] Budesonide/Formoterol [Symbicort 160-4.5 MCG] 2 puff INH BID 03/19/15 [History] Acetaminophen [Tylenol Extra Strength] 1,000 mg PO Q4HR PRN 09/28/18 [History] Varenicline [Chantix] 0.5 mg PO DAILY 12/28/18 [History] Cyclobenzaprine [Flexeril] 10 mg PO TID PRN #21 tab 01/19/19 [Rx] HYDROmorphone [Dilaudid] 2 mg PO Q4H PRN #42 tab 01/19/19 [Rx] Past Medical History HEENT History: Reports: None Cardiovascular History: Reports: Hypertension Respiratory History: Reports: Asthma, COPD Gastrointestinal History: Reports: None Other Gastrointestinal History: colon polyps Genitourinary History: Reports: None Musculoskeletal History: Reports: Back Pain, Chronic Other Musculoskeletal History: L knee scope 09/22/18 Neurological History: Reports: None, Concussion Psychiatric History: Reports: None Endocrine/Metabolic History: Reports: None Hematologic History: Reports: Blood Transfusion(s) Immunologic History: Reports: None Oncologic (Cancer) History: Reports: None Dermatologic History: Reports: None - Infectious Disease History Infectious Disease History: Reports: Chicken Pox, Measles - Past Surgical History Head Surgeries/Procedures: Reports: None HEENT Surgical History: Reports: Tonsillectomy Cardiovascular Surgical History: Reports: Other (See Below) Other Cardiovascular Surgeries/Procedures: angiogram Respiratory Surgical History: Reports: None GI Surgical History: Reports: Cholecystectomy, Colonoscopy, Hernia Repair/Other Endocrine Surgical History: Reports: None Neurological Surgical History: Reports: Lumbar Spine Other Neurological Surgeries/Procedures: Spinal fusion (2010, 2012, 10/20/2018 [facility]) Musculoskeletal Surgical History: Reports: Arthroscopic Knee, Knee Replacement, Shoulder Surgery Other Musculoskeletal Surgeries/Procedures:: L TKA x2 (2009, 2012), L knee arthroscopy (09/22/2018, Luis Bautista), L knee total joint revision due to instability (01/17/2019, Luis Bautista), L arthroscopic rotator cuff repair (2015) Dermatological Surgical History: Reports: None Social & Family History - Family History Family Medical History: Noncontributory - Tobacco Use Smoking Status *Q: Current Every Day Smoker Years of Tobacco use: 45 Packs/Tins Daily: 1 - Caffeine Use Caffeine Use: Reports: Coffee H&P Review of Systems - Review of Systems: Review Of Systems: See Below General: Reports: No Symptoms Exam - Exam Exam: See Below - Vital Signs Vital Signs: Last Vital Signs Temp 36.9 C 01/23/19 17:46 Pulse 101 H 01/23/19 17:46 Resp 14 01/23/19 17:46 BP 124/79 01/23/19 17:46 Pulse Ox 94 L 01/23/19 17:46 Weight: 79.379 kg - Exam Extremities: Joint Swelling, Increased Warmth, Redness, Other (blood blister secondary to traction on steri-strip at superior end of incison, knee more swollen than on discharge and is warm to the touch) - Patient Data Lab Results Last 24 hrs: Laboratory Results - last 24 hr 01/23/19 01/23/19 01/23/19 Range/Units 18:21 18:21 18:21 WBC 10.9 (4.5-11.0) K/uL RBC 4.39 (4.30-5.90) M/uL Hgb 14.2 (12.0-15.0) g/dL Hct 40.1 (40.0-54.0) % MCV 91 (80-98) fL MCH 32 H (27-31) pg MCHC 35 (32-36) % Plt Count 322 (150-400) K/uL Neut % (Auto) 58 (36-66) % Lymph % (Auto) 23 L (24-44) % [place] % (Auto) 17 H (2-6) % Eos % (Auto) 2 (2-4) % Baso % (Auto) 1 (0-1) % Sodium 126 L (140-148) mmol/L Potassium 3.4 L (3.6-5.2) mmol/L Chloride 89 L (100-108) mmol/L Carbon Dioxide 25 (21-32) mmol/L Anion Gap 15.4 H (5.0-14.0) mmol/L BUN 15 (7-18) mg/dL Creatinine 0.8 (0.8-1.3) mg/dL Est Cr Clr Drug Dosing 90.66 mL/min Estimated GFR (MDRD) > 60 (>60) Glucose 104 (74-106) mg/dL Calcium 9.2 (8.5-10.1) mg/dL C-Reactive Protein 8.12 H (0.0-0.3) mg/dL Ethyl Alcohol 128 mg/dL Result Diagrams: 01/23/19 18:21 01/23/19 18:21 Consult PN Assessment/Plan POD#: 6 Procedures: Procedures AIRWAY INHALATION TREATMENT (03/19/15) ASSAY ALKALINE PHOSPHATASE (03/19/15) BILIRUBIN TOTAL (03/19/15) COMPLETE CBC AUTOMATED (03/19/15) CT LUMBAR SPINE W/O DYE (04/07/18) ECHO EXAM OF ABDOMEN (01/08/15) EMERGENCY DEPT VISIT (11/16/16) EMERGENCY DEPT VISIT (03/22/13) EMERGENCY DEPT VISIT (03/22/13) EVALUATE PT USE OF INHALER (03/19/15) HEPATOBIL SYST IMAGE W/DRUG (03/12/15) HOT OR COLD PACKS THERAPY (08/20/15) IMMUNIZATION ADMIN (01/15/15) KNEE ARTHROSCOPY/SURGERY (09/22/18) LAP VENT/ABD HERNIA REPAIR (03/19/15) LAPAROSCOPIC CHOLECYSTECTOMY (03/19/15) MANUAL THERAPY 1/> REGIONS (08/29/15) MEASURE BLOOD OXYGEN LEVEL (03/19/15) MRI JOINT UPR EXTREM W/O DYE (03/02/14) MRI LUMBAR SPINE W/O DYE (02/09/18) NJX INTERLAMINAR LMBR/SAC (04/21/18) OFFICE/OUTPATIENT VISIT EST (11/16/18) POLYSOM 6/> YRS 4/> DIOR (02/01/17) POSTOP FOLLOW-UP VISIT (11/16/18) PT EVALUATION (08/20/15) ROUTINE VENIPUNCTURE (03/19/15) RPR F/E/E/N/L/M 2.5 CM/< (01/15/15) RPR S/N/AX/GEN/TRNK2.6-7.5CM (01/15/15) SELF CARE MNGMENT TRAINING (08/20/15) TDAP VACCINE 7 YRS/> IM (01/15/15) THERAPEUTIC EXERCISES (08/29/15) TISSUE EXAM BY PATHOLOGIST (03/19/15) TISSUE EXAM BY PATHOLOGIST (03/19/15) ULTRASOUND THERAPY (08/29/15) X-RAY EXAM KNEE 4 OR MORE (08/20/18) X-RAY EXAM OF SHOULDER (02/27/14) Problem List Initiated/Reviewed/Updated: Yes My Orders Last 24 Hours: My Active Orders 01/23/19 21:00 CULTURE BODY FLUID + SMEAR [RM] Stat 01/23/19 21:01 ceFAZolin [Ancef] 2 gm Premix Bag 1 bag IV ONETIME Plan: IMP: Exam and elevated C-RP are very suspicious for early surgical infection. Knee is prepped with alcohol and betadine and 5ml of bloody fluid is aspirated consistent with recent surgery. Not grossly purulent. Fluid sent for Gm Stain and culture. Will get dose of IV Ancef tonight. Will contact patient in AM and may have to admit for I&D of knee. Instructed not to eat after midnight.
== END 2019-01-23 21:51 | disposition home or self-care (01) ==
LOC: JP.ED 17:07
DX: L03.116 Cellulitis of left lower limb (principal); I10 Essential (primary) hypertension; J44.9 Chronic obstructive pulmonary disease, unspecified; F17.210 Nicotine dependence, cigarettes, uncomplicated; Z79.899 Other long term (current) drug therapy
CPT/HCPCS: 36415; 80048; 85025; 86140; 87070; 87075; 87205; 96365; 99283; A9270; G0480; J0690

== ENCOUNTER 2020-12-12 07:40 | Day surgery (SDC) | payer OTHER ==
[~2020-12-12 07:40] MED LIST changes: +Bupivacaine 0.5% 30 ML SDV ONE
[2020-12-12] MEDS ORDERED: Nozin Nasal Sanitizer NASBOTH ONE (08:30)
[2020-12-12] MEDS ORDERED: Lactated Ringers 1,000 ML IV SCH (08:30)
[2020-12-12] MEDS ORDERED: ceFAZolin 2 GM in Premix Bag 1 BAG IV ONE (08:30)
[2020-12-12] MEDS ORDERED: Albuterol/Ipratropium 3.0-0.5 MG/3 ML Neb Soln NEB ONE ×2 (08:30→13:04)
[2020-12-12] MEDS ORDERED: Propofol 200 MG/20 ML SDV ONE ×3 (09:21→11:08)
[2020-12-12] MEDS ORDERED: Midazolam 1 MG/ML 5 ML SDV ONE (09:34)
[2020-12-12] MEDS ORDERED: fentaNYL 100 MCG/2 ML SDV ONE (09:48)
[2020-12-12] MEDS ORDERED: Lactated Ringers 1,000 ML ONE (11:05)
[2020-12-12 12:46] VITALS: BP 145/81; PULSE 82
--- NOTE | 2020-12-17 21:12 | OR ---
DATE OF PROCEDURE: 12/12/2020 SURGEON: Jeramy Bautista MD PREOPERATIVE DIAGNOSIS: Recurrent rotator cuff tear, left shoulder. POSTOPERATIVE DIAGNOSIS: Recurrent left rotator cuff tear, large retracted L shaped tear. PROCEDURE: Arthroscopic repair, left rotator cuff. SCREW MACHINE TOOL SETTER: SARANYA Sanchez ANESTHESIA: Interscalene block with sedation. INDICATIONS: Luis F is a 65-year-old gentleman with a history of previous left rotator cuff repair, who sustained a fall past winter resulting in left shoulder pain. He has been having progressive pain and weakness for the last several months, and examination and imaging are consistent with a large recurrent tear of the rotator. He now presents for attempted arthroscopic repair. Risks, benefits, and potential complications were discussed. DESCRIPTION OF PROCEDURE: After adequate anesthesia was obtained, the patient placed in the lateral decubitus position and secured to matson bag positioner. Left shoulder and arm were prepped and draped in a sterile fashion and 10 pounds of traction was placed in the shoulder traction unit. A standard posterior portal was established and the scope was introduced to the glenohumeral joint. This revealed no significant degenerative change of the glenoid or humeral head. Labrum was intact. Subscapularis was intact. Long head of the biceps was absent. Under service, rotator cuff revealed a large retracted tear. The scope was withdrawn and placed into the subacromial space. Further evaluation of the tear revealed that significant portion of this was actually substance of the tendon and not avulse from the footprint. A tear was primarily L shaped with the apex of the L anterior. Lateral portal was established and flap of cuff still attached to the superior aspect of the tuberosity and was debrided. It was determined that the retracted portion of the tear could be mobilized. The superior surface of the tuberosity was lightly decorticated with a eduar. A FiberWire suture was placed into the corner of the tear in the anterolateral aspect and used as traction. Two double loaded Mitek Healix anchors were placed just off the edge of the articular surface was good purchase. While placing traction through the anterior portal, sutures were placed in a mattress fashion through the tendon working from posterior to anterior. Once all the sutures had been passed, they were then tied down again holding traction and reducing the tendon anteriorly and laterally. The sutures were tied from posterior to anterior. The set of sutures from both the posterior anchor and the anterior anchor replaced through a Mitek knotless anchor and into the bone in the lateral tuberosity creating a suture bridge double row fixation. One of the sutures remaining from the anterior set was also placed through knotless anchor and secured. The remaining suture pair was cut. Arm was taken through internal and external rotation. Rotator cuff repair showed good apposition against the tuberosity and stable repair with internal and external rotation. Scope was withdrawn. Port sites were closed with 3-0 Vicryl in interrupted fashion. Steri- Strips were applied. Sterile dressing was then placed. The patient tolerated the procedure very well. There were no complications and taken from the operating room in stable condition. Jeramy Bautista MD /[id number]
== END 2020-12-12 14:30 | disposition home or self-care (01) ==
LOC: JP.SDS 07:40
PROVIDERS: ATTEND Specialist
DX: M75.102 Unspecified rotator cuff tear or rupture of left shoulder, not specified as traumatic (principal); J45.909 Unspecified asthma, uncomplicated; G89.29 Other chronic pain; I10 Essential (primary) hypertension; F17.210 Nicotine dependence, cigarettes, uncomplicated; K21.9 Gastro-esophageal reflux disease without esophagitis; M54.9 Dorsalgia, unspecified; Z98.890 Other specified postprocedural states; Z90.49 Acquired absence of other specified parts of digestive tract; Z79.899 Other long term (current) drug therapy
CPT/HCPCS: 29827; 94640; A9270; C1713; J0690; J2250; J2704; J3010; J3490; J7120; J7620-GY

== ENCOUNTER 2021-04-17 07:56 | Day surgery (SDC) | payer OTHER ==
[2021-04-17] MEDS ORDERED: fentaNYL 100 MCG/2 ML SDV ONE (08:08)
[2021-04-17] MEDS ORDERED: Propofol 200 MG/20 ML SDV ONE ×2 (08:08→10:58)
[2021-04-17] MEDS ORDERED: Midazolam 1 MG/ML 2 ML SDV ONE ×3 (08:08→10:31)
[2021-04-17] MEDS ORDERED: Bupivacaine 0.5% 30 ML SDV ONE (08:11)
[2021-04-17] MEDS ORDERED: Nozin Nasal Sanitizer NASBOTH ONE (08:30)
[2021-04-17] MEDS ORDERED: ceFAZolin 2 GM in Premix Bag 1 BAG IV ONE (08:30)
[2021-04-17] MEDS ORDERED: ceFAZolin 2 GM in Sodium Chloride 0.9% 50 ML IV ONE (08:30)
[2021-04-17] MEDS ORDERED: Lactated Ringers 1,000 ML IV SCH (08:30)
[2021-04-17] MEDS ORDERED: Albuterol/Ipratropium 3.0-0.5 MG/3 ML Neb Soln NEB ONE (08:45)
[2021-04-17 12:23] VITALS: BP 119/78; PULSE 93
--- NOTE | 2021-04-17 22:49 | OR ---
DATE OF PROCEDURE: 04/17/2021 SURGEON: Jeramy Bautista MD PREOPERATIVE DIAGNOSES: 1. Calcific tendinitis, right shoulder. 2. Impingement, right shoulder. 3. Possible rotator cuff tear. POSTOPERATIVE DIAGNOSES: 1. Calcific tendinitis, right shoulder. 2. Rotator cuff tear, right shoulder. 3. Chondrocalcinosis, right shoulder and labrum. 4. Severe biceps tendinopathy with partial tear. PROCEDURE: Arthroscopy, right shoulder with: 1. Biceps tenotomy. 2. Debridement of glenoid labrum. 3. Subacromial decompression with acromioplasty. 4. Arthroscopic rotator cuff repair. MANAGER HOUSEKEEPING: SARANYA Ling ANESTHESIA: Interscalene block with sedation. INDICATIONS: Luis F is a 65-year-old gentleman with a history of persistent and progressive pain in his right shoulder. Imaging and examination are consistent with a small amount of calcific tendinitis and impingement with a possible rotator cuff tear. Now presents for arthroscopic evaluation, excision of calcific tendinitis, and repair of rotator cuff as necessary. Risks, benefits, and potential complications of procedure were discussed. conservation assistant services of physician itinerant teacher assistant Kailey Barry were utilized for placement of suture anchors, positioning of the arm, and operation of arthroscopic camera throughout the course of the case. DESCRIPTION OF PROCEDURE: After adequate anesthesia was obtained, the patient was placed in lateral decubitus position and secured with the matson bag positioner. Right shoulder and arm were prepped and draped in a sterile fashion and 10 pounds of traction was placed in a shoulder traction unit. A standard posterior portal was established. The glenohumeral joint was inspected. This revealed significant fraying of the biceps tendon, particularly at the anchor. Fraying of the superior labrum was noted. It was also noted to have Laveen complex variation with complete separation of the superior labrum off the edge of the glenoid. Subscapularis was intact. Anterior-inferior glenoid showed significant infiltration with the chondrocalcinosis along the inguinal labral junction. Anterior portal was established. Superior labrum was debrided and decision was made to proceed with a biceps tenotomy due to the severe tendinopathy and SLAP type tear of the superior labrum. Using the radiofrequency ablation, biceps tendon was tenotomized. Shaver was used to debride the labrum and chondral labral junction. Undersurface of the rotator cuff was evaluated and this showed a small amount of calcific tendinitis along the articular surface, which was debrided. Camera was then removed and placed into the subacromial space. Lateral portal was established. Calcifications were present along the edge of the coracoacromial ligament. Visualization of the cuff revealed a full-thickness tear of the supraspinous without significant retraction. This measured just over a centimeter in width. Using combination of shaver and Mitek ablation wand, soft tissues were cleared from the undersurface of the acromion. Coracoacromial ligament was released and a eduar was utilized to perform acromioplasty removing the anterolateral edge and bevelling it medially and posteriorly. Attention was then turned to the cuff tear. The edges of the tear showed calcium deposits around the entire edge of the tear. This was debrided with a shaver. A eduar was used to decorticate the superior surface of the footprint. A single Mitek double loaded helix anchor was placed. All 4 limbs of the sutures were brought up through the tendon using the suture passer. These were tied down using standard arthroscopic technique. These were then passed through a knotless anchor which was placed just off the edge of the tuberosity creating a suture bridge double row fixation. Sutures were cut. Good approximation of the tendon was achieved. The scope was withdrawn. Port sites were closed with #3 Ethibond. Steri-Strips were applied. Sterile dressing was then placed. The patient tolerated procedure very well. There were no complications. Taken from the operating room in stable condition. Jeramy Bautista MD /[id number]
== END 2021-04-17 12:00 | disposition home or self-care (01) ==
LOC: JP.SDS 07:56
PROVIDERS: ATTEND Specialist
DX: M75.121 Complete rotator cuff tear or rupture of right shoulder, not specified as traumatic (principal); M75.31 Calcific tendinitis of right shoulder; S46.211A Strain of muscle, fascia and tendon of other parts of biceps, right arm, initial encounter; M11.211 Other chondrocalcinosis, right shoulder; S43.431A Superior glenoid labrum lesion of right shoulder, initial encounter; I10 Essential (primary) hypertension; J44.9 Chronic obstructive pulmonary disease, unspecified; G89.29 Other chronic pain; M54.9 Dorsalgia, unspecified; F17.210 Nicotine dependence, cigarettes, uncomplicated; Z98.890 Other specified postprocedural states
CPT/HCPCS: 29826; 29827; 36415; 80048; 85027; 94640; A9270; C1713; J0690; J2250; J2704; J3010; J3490; J7120; J7620-GY

== ENCOUNTER 2022-08-13 07:23 | Day surgery (SDC) | payer OTHER ==
[2022-08-13] MEDS ORDERED: Bupivacaine 0.5% 30 ML SDV ONE ×3 (07:40→09:28)
[2022-08-13] MEDS ORDERED: Lactated Ringers 1,000 ML IV SCH (08:00)
[2022-08-13] MEDS ORDERED: Nozin Nasal Sanitizer NASBOTH ONE (08:00)
[2022-08-13 08:06] LABS: ESTIMATED GFR 95 mL/min (>60)
[2022-08-13] MEDS ORDERED: ceFAZolin 2 GM in Sodium Chloride 0.9% 50 ML IV ONE (08:30)
[2022-08-13] MEDS ORDERED: Propofol 200 MG/20 ML SDV ONE (08:42)
[2022-08-13] MEDS ORDERED: fentaNYL 250 MCG/5 ML SDV ONE ×2 (09:03→10:11)
[2022-08-13] MEDS ORDERED: Dexamethasone 4 MG/ML SDV ONE (09:04)
[2022-08-13] MEDS ORDERED: Ondansetron 4 MG/2 ML SDV ONE (09:04)
[2022-08-13] MEDS ORDERED: Succinylcholine 200 MG/10 ML MDV ONE (09:04)
[2022-08-13] MEDS ORDERED: Glycopyrrolate 0.2 MG/ML 5 ML MDV ONE (09:04)
[2022-08-13] MEDS ORDERED: Neostigmine Methylsulfate 1 MG/ML 5 ML Syringe ONE (09:22)
[2022-08-13] MEDS ORDERED: Rocuronium 50 MG/5 ML Vial ONE (09:22)
[2022-08-13] MEDS ORDERED: Scopolamine 1.5 MG Transdermal Patch ONE (10:50)
[2022-08-13] MEDS ORDERED: Lactated Ringers 1,000 ML ONE (10:54)
[2022-08-13] MEDS ORDERED: fentaNYL 100 MCG/2 ML SDV ONE (11:18)
[2022-08-13] MEDS ORDERED: Morphine 2 MG/ML SYRINGE IVPUSH PRN (12:20)
[2022-08-13] MEDS ORDERED: Ondansetron 4 MG Tab.DIS PO PRN (12:20)
[2022-08-13] MEDS ORDERED: Magnesium Hydroxide 400 MG/5 ML Susp 30 ML Cup PO PRN (12:20)
[2022-08-13] MEDS ORDERED: Sodium Chloride 0.9% 1,000 ML IV SCH (12:30)
[2022-08-13] MEDS ORDERED: Albuterol 0.083% 2.5 MG/3 ML Neb Soln INH PRN (12:31)
[2022-08-13] MEDS ORDERED: Methocarbamol 500 MG Tab PO PRN (12:31)
[2022-08-13] MEDS: Acetaminophen/HYDROcodone 325-5 MG Tab PO PRN (13:20)
[2022-08-13] MEDS: ceFAZolin 1 GM in Premix Bag 1 BAG IV SCH ×2 (15:44→23:23)
[2022-08-13] MEDS ORDERED: Albuterol 90 MCG/6.7 GM Inhaler INH PRN (16:00)
[2022-08-13] MEDS: Acetaminophen/oxyCODONE 325-5 MG Tab PO PRN ×2 (17:36→23:23)
[2022-08-13] MEDS: Nozin Nasal Sanitizer NASBOTH SCH (20:04)
[2022-08-13] MEDS: Amoxicillin/Clavulanate K 875-125 MG Tab PO SCH (20:05)
[2022-08-13] MEDS: Docusate Sodium 100 MG Cap PO SCH (20:05)
[2022-08-13] MEDS: Formoterol/Mometasone 200-5 MCG 8.8 GM Inhaler IH SCH (20:06)
[2022-08-13] MEDS: Acetaminophen 325 MG Tab PO PRN (22:25)
[2022-08-14] MEDS: Formoterol/Mometasone 200-5 MCG 8.8 GM Inhaler IH SCH (07:19)
[2022-08-14] MEDS ORDERED: Pantoprazole 40 MG Tab.CR PO SCH (07:30)
[2022-08-14] MEDS: Acetaminophen/oxyCODONE 325-5 MG Tab PO PRN (07:55)
[2022-08-14] MEDS: ceFAZolin 1 GM in Premix Bag 1 BAG IV SCH (07:57)
[2022-08-14] MEDS: Acetaminophen 325 MG Tab PO PRN (08:04)
[2022-08-14] MEDS ORDERED: Lisinopril 20 MG Tab PO SCH (09:00)
[2022-08-14] MEDS: Amoxicillin/Clavulanate K 875-125 MG Tab PO SCH (09:36)
[2022-08-14] MEDS: Nozin Nasal Sanitizer NASBOTH SCH (09:36)
[2022-08-14] MEDS: Docusate Sodium 100 MG Cap PO SCH (09:38)
[2022-08-14 11:57] VITALS: BP 131/85; PULSE 78
[2022-08-14] MEDS: Acetaminophen/HYDROcodone 325-5 MG Tab PO PRN (12:01)
== END 2022-08-14 13:50 | disposition home or self-care (01) ==
LOC: JP.SDS 07:23 → JP.MS 12:20 → JP.SDS 08-14 13:50
PROVIDERS: ATTEND Specialist
DX: M75.102 Unspecified rotator cuff tear or rupture of left shoulder, not specified as traumatic (principal); I10 Essential (primary) hypertension; J44.9 Chronic obstructive pulmonary disease, unspecified; F32.A Depression, unspecified; G89.29 Other chronic pain; M54.9 Dorsalgia, unspecified; F41.9 Anxiety disorder, unspecified; J45.909 Unspecified asthma, uncomplicated; G47.33 Obstructive sleep apnea (adult) (pediatric); Z98.890 Other specified postprocedural states; Z79.899 Other long term (current) drug therapy; Z87.891 Personal history of nicotine dependence
CPT/HCPCS: 23472; 36415; 73020; 80053; 85025; 94640; 97110; 97161; 97535; A9270; C1713; C1776; J0330; J0690; J1100; J2405; J2704; J2710; J3010; J3490; J7030; J7120

== ENCOUNTER 2022-09-09 09:29 | Emergency (ER) | payer OTHER ==
[2022-09-09 11:31] VITALS: BP 140/94; PULSE 99
== END 2022-09-09 12:07 | disposition home or self-care (01) ==
LOC: JP.ED 09:29
DX: M96.89 Other intraoperative and postprocedural complications and disorders of the musculoskeletal system (principal); I10 Essential (primary) hypertension; J44.9 Chronic obstructive pulmonary disease, unspecified; K21.9 Gastro-esophageal reflux disease without esophagitis; Z79.899 Other long term (current) drug therapy; Z87.891 Personal history of nicotine dependence
CPT/HCPCS: 73030-26-LT; 73030-LT; 99283

== ENCOUNTER 2022-09-11 14:42 | Day surgery (SDC) | payer OTHER ==
[2022-09-11] MEDS: Bupivacaine 0.5% 50 ML MDV ONE ×2 (13:57→18:08)
[~2022-09-11 14:42] MED LIST changes: +Dexamethasone 4 MG/ML SDV ONE; +Glycopyrrolate 0.2 MG/ML 5 ML MDV ONE; +Neostigmine Methylsulfate 1 MG/ML 5 ML Syringe ONE; +Ondansetron 4 MG/2 ML SDV ONE; +Rocuronium 50 MG/5 ML Vial ONE
[2022-09-11] MEDS ORDERED: Lactated Ringers 1,000 ML IV SCH (15:30)
[2022-09-11] MEDS ORDERED: Nozin Nasal Sanitizer NASBOTH SCH (15:30)
[2022-09-11 15:31] LABS: ESTIMATED GFR 99 mL/min (>60)
[2022-09-11] MEDS ORDERED: Morphine 2 MG/ML SYRINGE IVPUSH PRN (17:18)
[2022-09-11] MEDS ORDERED: Ondansetron 4 MG Tab.DIS PO PRN (17:18)
[2022-09-11] MEDS ORDERED: fentaNYL 100 MCG/2 ML SDV ONE ×3 (17:32→18:31)
[2022-09-11] MEDS ORDERED: oxyCODONE 5 MG Tab PO PRN (18:38)
[2022-09-11] MEDS ORDERED: Sodium Chloride 0.9% 10 ML ONE (19:00)
[2022-09-11] MEDS ORDERED: hydrALAZINE 20 MG/ML SDV ONE (19:00)
[2022-09-11] MEDS: Ketorolac 15 MG/ML SDV IVPUSH SCH (20:28)
[2022-09-11] MEDS: Nozin Nasal Sanitizer NASBOTH SCH (20:28)
[2022-09-11] MEDS: Acetaminophen 325 MG Tab PO SCH (20:28)
[2022-09-11] MEDS: Aspirin 325 MG Tab.EC PO SCH (20:29)
[2022-09-11] MEDS: oxyCODONE 5 MG Tab PO PRN (20:30)
[2022-09-11] MEDS: Sodium Chloride 0.9% 1,000 ML IV SCH (21:34)
[2022-09-12] MEDS ORDERED: ceFAZolin 1 GM in Sodium Chloride 0.9% 50 ML IV SCH (01:00)
[2022-09-12] MEDS: Ketorolac 15 MG/ML SDV IVPUSH SCH ×2 (01:14→06:00)
[2022-09-12] MEDS: Acetaminophen 325 MG Tab PO SCH ×3 (01:14→11:06)
[2022-09-12] MEDS: Sodium Chloride 0.9% 1,000 ML IV SCH (05:33)
[2022-09-12] MEDS: oxyCODONE 5 MG Tab PO PRN ×2 (05:33→11:05)
[2022-09-12] MEDS: Nozin Nasal Sanitizer NASBOTH SCH (08:34)
[2022-09-12] MEDS: Aspirin 325 MG Tab.EC PO SCH (08:35)
[2022-09-12] MEDS ORDERED: ceFAZolin 1 GM in Premix Bag 1 BAG IV SCH (09:00)
[2022-09-12 11:27] VITALS: BP 143/88; PULSE 73
== END 2022-09-12 11:58 | disposition home or self-care (01) ==
LOC: JP.SDS 14:42 → JP.2SS 17:18 → JP.SDS 09-12 11:58
PROVIDERS: ATTEND Specialist
DX: T84.84XA Pain due to internal orthopedic prosthetic devices, implants and grafts, initial encounter (principal); T84.89XA Other specified complication of internal orthopedic prosthetic devices, implants and grafts, initial encounter; T84.028A Dislocation of other internal joint prosthesis, initial encounter; K21.9 Gastro-esophageal reflux disease without esophagitis; I10 Essential (primary) hypertension; G47.33 Obstructive sleep apnea (adult) (pediatric); J44.9 Chronic obstructive pulmonary disease, unspecified; F17.200 Nicotine dependence, unspecified, uncomplicated; Z96.698 Presence of other orthopedic joint implants; Z20.822 Contact with and (suspected) exposure to COVID-19
CPT/HCPCS: 23473; 36415; 80053; 85027; 87635; 97162; A9270; C1776; J0360; J0690; J1100; J1885; J2250; J2405; J2704; J2710; J3010; J3490; J7030; J7120; U0002

== ENCOUNTER 2022-09-19 07:41 | Emergency (ER) | payer OTHER ==
[2022-09-19 08:35] VITALS: BP 113/83; PULSE 107
== END 2022-09-19 08:39 | disposition home or self-care (01) ==
LOC: JP.ED 07:41
DX: M96.840 Postprocedural hematoma of a musculoskeletal structure following a musculoskeletal system procedure (principal); I10 Essential (primary) hypertension; J44.9 Chronic obstructive pulmonary disease, unspecified; K21.9 Gastro-esophageal reflux disease without esophagitis; F17.210 Nicotine dependence, cigarettes, uncomplicated; Z86.16 Personal history of COVID-19; Z79.899 Other long term (current) drug therapy
CPT/HCPCS: 99282; 99283